=== PATIENT | female | born 1965 | race Caucasian/White ===

== ENCOUNTER 2016-05-14 07:31 | Observation (INO) | payer BC, OTHER ==
[~2016-05-14] VITALS: Ht 157.5 cm; Wt 47.2 kg
[2016-05-14] VITALS (7 sets, daily range): BP systolic 116–137; BP diastolic 63–91; PULSE 64–84; TEMP 36.4–36.8; O2SAT 95–98; Ht 157.5 cm; Wt 47.2 kg
[~2016-05-14 07:31] MED LIST: CEFAZOLIN 2000 MG/60 ML D5W IV SCH; LACTATED RINGER'S 1000ML 1,000 ML IV SCH; PATIENT'S ALLERGY INFO NEEDS ENTERED SCH; PATIENT'S HEIGHT AND/OR WEIGHT NEEDED SCH
[2016-05-14] MEDS ORDERED: BUPR-83 PO (07:51)
[2016-05-14] MEDS ORDERED: ALBU18002 INH (07:51)
[2016-05-14] MEDS ORDERED: FERR50TA3 PO (07:54)
[2016-05-14] MEDS ORDERED: CYAN1SUB12 INJ (07:54)
[2016-05-14] MEDS ORDERED: VITACAP26 PO (07:54)
[2016-05-14 08:16] LABS: BASO ABS # 0.07 K/uL (0-0.2); EOS % 1.1 %; HEMATOCRIT 47.5 % (37-47); IG% 0.1 %; LYMPH % 29.3 %; LYMPH ABS # 2.05 K/uL (1.2-3.4); MEAN CELL VOLUME 87.3 fL (80-100); MEAN CORPUSCULAR HEMOGLOBIN 31.3 pg (25-34); MEAN PLATELET VOLUME 10.3 fL (7.4-10.4); MONO % 9.1 %; NEUT % 59.4 %; PLATELET COUNT 280 K/uL (130-400); RED BLOOD COUNT 5.44 M/uL (4.2-5.4)
[2016-05-14 08:31] LABS: COMPLETE YES; MEAN CORPUSCULAR HGB CONC 35.8 g/dl (32-36)
[2016-05-14] MEDS ORDERED: GLYCOPYRROLATE INJ 0.2 MG/ML VIAL ONE (09:08)
[2016-05-14] MEDS ORDERED: PROPOFOL IV EMULSION 10 MG/ML 20 ML VIAL IV ONE (09:08)
[2016-05-14] MEDS ORDERED: DEXAMETHASONE SOD INJ 4 MG/ML VIAL ONE (09:08)
[2016-05-14] MEDS ORDERED: ROCURONIUM BROMIDE 10 MG/ML 5 ML VIAL ONE (09:08)
[2016-05-14] MEDS ORDERED: NEOSTIGMINE METHYLSULFATE 5 MG/5 ML SYR ONE (09:08)
[2016-05-14] MEDS ORDERED: ONDANSETRON INJ 2 MG/ML 2 ML VIAL ONE (09:08)
[2016-05-14] MEDS ORDERED: FENTANYL CITRATE INJ 50 MCG/1 ML 2 ML VIAL ONE ×3 (09:09→10:43)
[2016-05-14] MEDS ORDERED: MIDAZOLAM HCL 1 MG/ML 2ML VIAL ONE (09:09)
[2016-05-14] MEDS ORDERED: LACTATED RINGER'S 1000ML 1,000 ML IV PRN (09:20)
[2016-05-14] MEDS ORDERED: FENTANYL CITRATE INJ 50 MCG/1 ML 2 ML VIAL IV PRN (09:30)
[2016-05-14] MEDS ORDERED: DiphenhydrAMINE HCL 50 MG/ML VIAL IV PRN (09:30)
[2016-05-14] MEDS ORDERED: METOCLOPRAMIDE HCL INJ 5 MG/ML 2 ML VIAL IV PRN (09:30)
[2016-05-14] MEDS ORDERED: ONDANSETRON INJ 2 MG/ML 2 ML VIAL IV PRN ×2 (09:30→12:00)
[2016-05-14] MEDS ORDERED: MoRPHine SULFATE 10 MG/ML CARP/VIAL IV PRN (09:30)
--- NOTE | 2016-05-14 09:31 | History & Physical Bridge Note ---
H&P Re-Evaluation Bridge Note: I have examined the patient, reviewed the History & Physical and in the interval since the performance of the History & Physical I have noted the following changes of clinical significance: No changes noted
[2016-05-14] MEDS ORDERED: KETOROLAC TROMETHAMINE 30 MG/ML VIAL ONE (11:31)
[2016-05-14] MEDS ORDERED: BUPIVACAINE 0.5 % 5 MG/1 ML MPF 30ML VIAL INJ ONE (11:38)
[2016-05-14] MEDS ORDERED: LACTATED RINGER'S 1000ML 1,000 ML IV SCH (11:47)
[2016-05-14] MEDS ORDERED: MTR600X PO (11:52)
[2016-05-14] MEDS ORDERED: OXYC-57 PO (11:52)
--- NOTE | 2016-05-14 11:53 | Discharge Instructions ---
Discharge Instructions Admission Reason for Admission: Leiomyoma Of Uterus, Abnormal Uterine Bleeding Discharge Discharge Diagnosis / Problem: status post surgery Discharge Goals Goal(s): Routine recovery after surgery Activity Recommendations Activity Limitations: as noted below . Instructions / Follow-Up Instructions / Follow-Up POST OPERATIVE: BOWEL FUNCTION/MEDICATIONS: 1. Constipation pain and discomfort are the most common complaints 5-7 days after surgery. Points 2-6 address the things that can help. 2. Chewing gum can help stimulate the gut and help improve digestion and motility. 3. Milk of Magnesia 1-2 times per day until return of bowel function. 4. Colace is a stool softener that helps. Taking this 2-3 times per day until bowel function returns to normal is highly recommended. 5. Dulcolax is a laxative that may be used if several days have passed without a bowel movement. Alternatively Miralax may be used daily instead. 6. Drink plenty of fluids as this will also reduce constipation. 7. Narcotic pain medications will be prescribed by your physician. They are safe to use and we encourage you to use them. If you are not allergic, ibuprofen will also be prescribed. Many patients will be able to transition off of the narcotic medications to ibuprofen by postoperative day 3. ACTIVITY RECOMMENDATIONS: 1. Get plenty of rest and listen to your body. If you are tired, take a nap. 2. You may shower, but do not take a tub bath until you see your doctor at the 2 week post operative visit. 3. Absolutely NO intercourse and nothing in the vagina until you are examined by your doctor at the 8 week visit. At that visit it will be determined when such activities can be resumed. This can range from 6-12 weeks after your surgery depending on healing time. 4. The main physical activity in the first week should be walking. By the second week you can slowly increase activity. There are no limits on walking up and down stairs. 5. Do not lift more than 5-10 lbs for 4 weeks. Remember the "one-handed rule", i.e. if you can lift something with only one hand it's likely okay. 6. Minimize clinical athletic instructor like vacuuming and exercising for 4 weeks. "Overdoing it" can lead to incisions not healing, pain and vaginal bleeding , so again, listen to your body. 7. Driving can be resumed when you feel able. Do not drive within 24 hours of taking a narcotic medication. EXPECTATIONS: 1. Vaginal spotting, bleeding and discharge are common after surgery. There may even be an odor to the discharge which is often related to sutures used in the vagina. If you experience heavy vaginal bleeding, call the office number day or night [phone]. 2. Bladder discomfort is common after surgery from the catheter. This usually resolves in 1-2 weeks. 3. By the end of the 3rd or 4th week you should be feeling much better. It may take up to 6 weeks for your energy levels to return to normal. 4. Narcotic medications have side effects such as: dizziness, headache, nausea and/or vomiting. If you suspect your pain medication is causing problems, call our office and we may be able to prescribe an alternate medication. 5. The skin incisions are often covered with a liquid bandage. This will gradually peel off over time. CALL THE OFFICE IF YOU HAVE ANY OF THE FOLLOWIN. Temperature of 101 degrees or higher. 2. Severe abdominal or pelvic pain not relieved by pain medication. 3. Persistent nausea or vomiting. 4. Increased pain with urination or difficulty urinating. 5. Bright red bleeding that soaks more than 1 pad per hour. CONTACT PHONE NUMBERS: Main Office: [phone] Surgical Nurse: [phone] extension [phone] FOLLOW-UP: Post-Operative Appointments: * Individual instructions will have been given about the timing of your first examination, but this is usually at the end of the second week home. * You will need to call the office at soon after discharge to make the appointment for your post-op check-up if it has not already been scheduled. * Additional information regarding activity, sexual intercourse and when to return to work will be given at this appointment. WE WISH YOU A SPEEDY RECOVERY! Current Hospital Diet Patient's current hospital diet: Discharge Diet Recommended Diet: Regular Diet Procedures Procedures Performed: Total Laparoscopic Hysterectomy, Bilateral salpingectomies with use of Davinci, cystoscopy Pending Studies Studies pending at discharge: yes List of pending studies: pathology Medical Emergencies . Who to Call and When: Medical Emergencies: If at any time you feel your situation is an emergency, please call 911 immediately. . Non-Emergent Contact Non-Emergency issues call your: Primary Care Provider, Machinist General Call Non-Emergent contact if: you have a fever, your pain is worsening, your pain is concerning you, wound has increased drainage, wound has increased redness, wound has increased pain . . "Provider Documentation" section prepared by Saira Paredes. VTE Core Measure Inpt VTE Proph given/why not?: Treatment not indicated
--- NOTE | 2016-05-14 11:56 | [facility] Post Operative Brief Note ---
Immediate Operative Summary Operative Date May 14, 2016. Pre-Operative Diagnosis 1. Abnormal uterine bleeding, 2. uterine leiomyoma. 3. H/o anemia 4. abnl u/s findings Post-Operative Diagnosis Same as preop. Procedure(s) Performed Total Laparoscopic Hysterectomy, Bilateral salpingectomies with use of ERIKA Joya cystoscopy Surgeon Dr. Paredes Prep Room Supervisor Surgeon(s) None Estimated Blood Loss 10 mL Findings omental adhesions to anterior abdominal wall and toward left sidewall. did not involve bowel. dense adhesions of peritoneal tissues and bladder to anterior uterus particularly on left anterior uterus but came across midline. normal ovaries and tubes bilaterally. cyto findings with normal bladder filling, no sutures seen, normal bilateral ureteral jets. Fluids (cc crystalloids) 1500 Specimens A: Uterus, Cervix, Bilateral Tubes Drains none Anesthesia general Complication(s) None Disposition Recovery Room / PACU
[2016-05-14] MEDS ORDERED: SIMETHICONE 80 MG CHEW PO PRN (12:00)
[2016-05-14] MEDS ORDERED: ACETAMINOPHEN 325 MG TAB PO PRN (12:00)
[2016-05-14] MEDS ORDERED: IBUPROFEN 600 MG TAB PO PRN (12:00)
[2016-05-14] MEDS ORDERED: OXYCODONE/ACETAMINOPHEN 5-325 TAB PO PRN (12:00)
[2016-05-14] MEDS ORDERED: KETOROLAC TROMETHAMINE 30 MG/ML VIAL IV. PRN (12:00)
--- NOTE | 2016-05-14 12:57 | OPERATIVE REPORT ---
DATE OF OPERATION: 05/14/2016 PREOPERATIVE DIAGNOSES: 1. Abnormal uterine bleeding. 2. Abnormal ultrasound findings. 3. Uterine leiomyoma. 4. History of anemia. POSTOPERATIVE DIAGNOSES: Same. PROCEDURES: 1. Total laparoscopic hysterectomy. 2. Lysis of adhesions. 3. Bilateral salpingectomies. 4. Cystoscopy. 5. Robotic assistance. SURGEON: Dr. Saira Paredes. KIT PLANNER: RN. IV FLUIDS: 1500 mL. ESTIMATED BLOOD LOSS: 10 mL. INDICATIONS: A 50-year-old who has completed her childbearing with a history of abnormal uterine bleeding for the past 6 years with description of extremely heavy flow with passage of large clots limiting her lifestyle, particularly in the past 12 months. The patient was seen by other physicians, who attempted an endometrial ablation, but could not get into the cavity. She had an endometrial biopsy that showed benign findings and unfortunately due to anemia from her bleeding, has periodically obtained iron infusions. She wants definitive hysterectomy. She has a likely intracavitary or submucosal fibroid on ultrasound with cavity distortion. She is a smoker. She has some right-sided pain intermittently. I would consider a right unilateral salpingo-oophorectomy if there was evidence of issues on the right side at the time of surgery. She had considered all of her options and desired definitive hysterectomy. FINDINGS: Laparoscopic findings with normal liver edge. Uterus is mobile in the pelvis as was the bilateral ovaries and fallopian tubes. Fallopian tubes with evidence of prior tubal occlusion. Omental adhesions densely in the midline to the anterior abdominal wall and meeting in the left sidewall. Additional adhesions of the bladder and peritoneal tissues densely to the anterior uterus with more significant adhesions centrally and towards the left hand side. Ureters peristalsing and coursing normally well beneath the planned operative sites. Hysteroscopic findings at the end of the procedure included normal bladder filling with normal dome. No evidence of suture material and bilateral ureteral jets noted. DESCRIPTION OF PROCEDURE: The patient was taken to the operating room and identified. After adequate general anesthesia, the patient was placed in the dorsal lithotomy position and prepped and draped in the usual sterile fashion. The bladder was drained for clear yellow urine using a Guerrero catheter. Attention was turned to the vagina, where an anterior retractor as well as a weighted speculum were used to visualize the cervix. The cervix was grasped on its anterior lip with an Allis clamp. A interrupted suture of 0- vicryl was placed at the 3 o'clock position on the cervix. Cervix was sequentially dilated and sounded to 9.5 cm. The Departingare uterine manipulator was gently placed into the cervical os into the uterine cavity and a balloon was inflated. The cup was tied to the suture material and then was further stabilized. This was done to allow for uterine manipulation. The Allis clamp had been removed. The retractors had been removed. Attention was then turned to the patient's abdomen, where a supraumbilical skin incision was made with a scalpel. The Veress needle was placed intraperitoneally with an opening pressure of 4 mmHg. A CO2 pneumoperitoneum was created. Using a 12-mm optical trocar and a laparoscope, the peritoneal cavity was entered into the trocar. The patient was placed in steep Trendelenburg. The da Wendy trocar sites were created left and right of the midline by first creating skin incisions and then placing under direct visualization da Wendy trocars. The findings were as noted above. The da Wendy robot was brought to the patient's bedside. The appropriate instrument arms were connected to the appropriate trocars. The monopolar samuel and fenestrated bipolar cautery device were introduced into the abdomen after the camera was placed under direct visualization. The surgeon then went to the console. The surgeon next addressed the dense adhesions of the omentum to the anterior abdominal wall. These did not involve any bowel tissue. The bilateral ureters were noted coursing well below the planned operative site. The ovaries were completely mobile in the pelvis bilaterally and therefore, the decision was made not to remove either ovary, per the patient's request. The uterine-ovarian round ligament, fallopian tube complex on the right side was identified. It was coagulated and then transected in a sequential fashion. The broad ligament was opened up into. The bladder flap was begun anteriorly from the right side as well as further skeletonization of the uterine artery pedicle from the right side. The uterine arteries were then coagulated. Attention was then turned to the left side. The left uterine-ovarian round ligament, fallopian tube complex was coagulated and transected in a similar fashion. The leaves of the broad ligament were opened up into sharply and the uterine artery pedicle was skeletonized. It was evident that there were dense adhesions of the peritoneum and/or bladder to the anterior cervix, particularly on the left side. For this recent, attention was returned to the right uterine artery area and with sharp and blunt dissection, the overlying tissues and bands of scar tissue were taken down to reveal the VCare cup and clear of the bladder more completely from this right side. Because it was better cleared on this right side, the uterine arteries were further cauterized and then transected and the cardinal ligament attachments were further cauterized and transected. Clearly, the dense adhesions persisted on the left side. It appeared to be more of a dense band of the peritoneal tissue, but to be sure, the bladder was backfilled and with the backfilled bladder and the uterus elevated, it was evident that this tissue was not involving the actual bladder. For that reason, close to the uterus, the band of tissue was coagulated and transected. With blunt and further sharp dissection, the bladder flap was further developed on the left side towards the midline and the bladder was cleared away from the anterior VCare cup. The uterine arteries were then further skeletonized on the left. They were coagulated and transected. The cardinal ligament attachments were further coagulated and transected and this allowed for palpation of the VCare cup circumferentially and decision was made to proceed with colpotomy. With pressure on the VCare cup, the colpotomy was performed. The specimen was completely transected. It was brought out vaginally. The fallopian tubes bilaterally were cauterized and transected and then passed vaginally as well. A sponge was placed in the vagina to allow for maintenance of the pneumoperitoneum. A 2-0 V-Loc 90 suture was passed vaginally into the abdomen. The #1 instrument arm was changed to the large needle [employer] haz[employer] tanker driver and the cuff was closed in the routine fashion using 2-0 V-Loc 90 suture material. Back stitches were placed. The sponge was removed and there was no escape of air from the abdomen into the vagina. The pelvis was irrigated and after the suture material was cut, the needle was brought out of the abdomen. The pelvis was irrigated and there were no active bleeding sites. At this point, the procedure was terminated. All the operative sites were hemostatic. The robot was undocked and left by the bedside and kept sterile and the surgeon then went to perform cystoscopy. The cystoscopy was performed with the findings as noted above. At this point, the procedure was terminated. The bladder was drained of all excess urine and a Guerrero catheter was not replaced. The robot was moved away from the bedside. Attention was turned to the patient's abdomen, where the CO2 gas was allowed to escape from her abdomen and the trocars were removed. The fascia was reapproximated at the supraumbilical skin incision using 0 Vicryl in an interrupted suture. The skin incisions were all closed with 4-0 Vicryl. The incisions were then injected with Marcaine and dressed with Dermabond. The patient was returned to the supine position. She was awoken from anesthesia and transferred to recovery room in stable condition. All sponge, lap, and needle counts were correct x2. I attest to the content of the Intraoperative Record and any orders documented therein. Any exceptions are noted below. JAGRUTI
--- NOTE | 2016-05-14 13:04 | Anesthesiology Progress Note ---
Anesthesia Post Op Note Date & Time May 14, 2016 at 13:03 Vital Signs Pain Intensity: 0 Vital Signs Past 12 Hours Date Time Temp Pulse Resp B/P Pulse Ox O2 Delivery O2 Flow Rate FiO2 05/14/16 12:55 66 19 148/88 100 Nasal Cannula 2 05/14/16 12:45 36.4 73 18 141/74 100 Nasal Cannula 2 05/14/16 12:35 66 12 165/65 100 Nasal Cannula 2 05/14/16 12:25 61 11 120/59 100 Mask 10 05/14/16 12:15 62 10 108/65 100 Mask 10 05/14/16 12:05 66 10 101/61 100 Mask 10 05/14/16 11:57 36.0 79 19 105/71 99 Mask 10 05/14/16 07:55 36.5 84 18 131/63 97 Room Air Notes Mental Status: alert / awake / arousable, participated in evaluation Pt Amnestic to Procedure: Yes Nausea / Vomiting: adequately controlled Pain: adequately controlled Airway Patency, RR, SpO2: stable & adequate BP & HR: stable & adequate Hydration State: stable & adequate Anesthetic Complications: no major complications apparent Pt doing well.
[2016-05-14] MEDS ORDERED: IV FLUIDS COMPLETED PRN (13:45)
[2016-05-14] MEDS: OXYCODONE/ACETAMINOPHEN 5-325 TAB PO PRN ×2 (15:05→19:12)
--- NOTE | 2016-05-16 10:50 | Progress Note ---
Progress Note of note I had signed her op note but on dictating her d/c summary noticed that I said a hysteroscopic evaluation was done of her bladder. I meant cystoscopic.
--- NOTE | 2016-05-16 11:46 | DISCHARGE SUMMARY ---
ADMISSION DIAGNOSES: 1. Abnormal uterine bleeding. 2. Abnormal ultrasound findings. 3. Uterine leiomyoma. 4. History of anemia. DISCHARGE DIAGNOSES: Same. PROCEDURES: 1. Total laparoscopic hysterectomy. 2. Lysis of adhesions. 3. Bilateral salpingectomies. 4. Cystoscopy. 5. Robotic assistance. BRIEF HISTORY AND HOSPITAL COURSE: A 50-year-old who has completed her childbearing with a history of abnormal uterine bleeding for the past 6 years, worsening with large clots and extremely heavy flow in the past 12 months. The patient had an attempted endometrial ablation by another provider, but they could not complete this. She had an endometrial biopsy that showed benign findings and unfortunately due to her anemia, has had IV ironic transfusions. She wants definitive hysterectomy. She also has an intracapsular submucosal fibroid on ultrasound. She is a smoker. She has an intermittent right-sided pain and desired evaluation of the right side for possible unilateral salpingo-oophorectomy. She went to the operating room as mentioned with the above stated procedures. The ovary was completely mobile on the right side and therefore other than salpingectomies, it was left in place. The estimated blood loss was 10 mL. Her postop course and recovery was uncomplicated. She was tolerating a regular diet, voiding spontaneously without difficulty, ambulating without difficulty and was stable for discharge to home on her postop day #0. She was given appropriate pain medication prescriptions as well as discharge instructions. She is to follow up in the office in 2 weeks.
== END 2016-05-14 20:05 | disposition home or self-care (01) ==
LOC: ENRESERVTM → ENRESERVDT → C.ACU 07:31 → C.MS4N 08:10
PROVIDERS: ADMIT Obstetrics & Gynecology; ATTEND Obstetrics & Gynecology
DX: N93.9 Abnormal uterine and vaginal bleeding, unspecified (principal); D25.0 Submucous leiomyoma of uterus; K66.0 Peritoneal adhesions (postprocedural) (postinfection); F41.8 Other specified anxiety disorders; F42.9 Obsessive-compulsive disorder, unspecified; F17.200 Nicotine dependence, unspecified, uncomplicated; Z90.49 Acquired absence of other specified parts of digestive tract; Z82.49 Family history of ischemic heart disease and other diseases of the circulatory system; Z80.0 Family history of malignant neoplasm of digestive organs; Z82.3 Family history of stroke; Z83.71 Family history of colonic polyps
CPT/HCPCS: 58571; S2900

== ENCOUNTER → 2016-06-02 | Outpatient (CLI) | payer BC, OTHER ==
[~2016-06-02] MED LIST changes: +ALBU18002 INH; +BUPR-83 PO; -CEFAZOLIN 2000 MG/60 ML D5W IV SCH; +CYAN1SUB12 INJ; +FERR50TA3 PO; -LACTATED RINGER'S 1000ML 1,000 ML IV SCH; +MTR600X PO; +OXYC-57 PO; -PATIENT'S ALLERGY INFO NEEDS ENTERED SCH; -PATIENT'S HEIGHT AND/OR WEIGHT NEEDED SCH; +VITACAP26 PO
[2016-06-02 12:19] LABS: BASO % 1.6 %; BASO ABS # 0.16 K/uL (0-0.2); COMPLETE YES; EOS % 3.8 %; HEMATOCRIT 43.7 % (37-47); IG% 0.3 %; LYMPH % 25.6 %; LYMPH ABS # 2.54 K/uL (1.2-3.4); MEAN CELL VOLUME 89.4 fL (80-100); MEAN CORPUSCULAR HEMOGLOBIN 31.9 pg (25-34); MEAN CORPUSCULAR HGB CONC 35.7 g/dl (32-36); MEAN PLATELET VOLUME 10.6 fL (7.4-10.4); NEUT % 58.7 %; PLATELET COUNT 329 K/uL (130-400); RED BLOOD COUNT 4.89 M/uL (4.2-5.4); WHITE BLOOD COUNT 9.94 K/uL (4.8-10.8)
[2016-06-02 12:31] LABS: ALT/SGPT 25 U/L (12-78); BLOOD UREA NITROGEN 16 mg/dl (7-18); BUN/CREATININE RATIO 16.6 (10-20); CALCIUM 8.6 mg/dl (8.5-10.1); CARBON DIOXIDE 26 mmol/L (21-32); CHLORIDE 104 mmol/L (98-107); CREATININE 0.94 mg/dl (0.60-1.20); GLUCOSE 124 mg/dl (70-99); POTASSIUM 3.9 mmol/L (3.5-5.1); SODIUM 140 mmol/L (136-145)
[2016-06-02 12:34] LABS: ALB/GLOB RATIO 1.3 (0.9-2); ALKALINE PHOSPHATASE 94 U/L (45-117); AST/SGOT 19 U/L (15-37)
== END | disposition home or self-care (01) ==
LOC: C.LAB1850 10:40
PROVIDERS: ATTEND Obstetrics & Gynecology
DX: R10.2 Pelvic and perineal pain (principal)

== ENCOUNTER 2017-03-29 20:23 | Inpatient (IN) | payer BC, OTHER ==
[~2017-03-29] VITALS: Ht 160 cm; Wt 50.6 kg
[~2017-03-29 20:23] MED LIST changes: -SERT25TA PO; -ZLF50 PO
[2017-03-29] MEDS ORDERED: SERT25TA PO ×2 (20:36)
[2017-03-29] MEDS ORDERED: LORAZEPAM 0.5 MG TAB PO STA (20:44)
--- NOTE | 2017-03-29 20:50 | EMERGENCY ROOM VISIT NOTE ---
History Report prepared by Henrik: Randolph Easley Under the Supervision of: Dr. Marcus Rowley M.D. First contact with patient: 20:31 Chief Complaint: MENTAL HEALTH EVALUATION Stated Complaint: MENTAL HEALTH EVAL History of Present Illness The patient is a 51 year old white female with a past medical history of suicidal ideations, anemia, c-sections, cholecystectomy, and hysterectomy who presents to the ED with a cc of suicidal ideations beginning a couple years ago , though her PCP told her to come to the ED for evaluation today. Negative recent stressors, hallucinations, homicidal ideation, nausea, vomiting, abdominal pain, difficulty with urination, difficulty with bowel movements, alcohol use, drug use, and any attempt at suicide. She states that she was recently put on Zoloft, and she states that she currently is a smoker. Source of History: patient Onset: years ago Position: other (global) Quality: other (suicidal ideation) Timing: constant Associated Symptoms: No nausea, No vomiting, No abdominal pain, No urinary symptoms Review of Systems See HPI for pertinent positives and negatives. A total of ten systems were reviewed and were otherwise negative. Past Medical & Surgical Medical Problems: (1) Abnormal pelvic ultrasound (2) Abnormal uterine bleeding (AUB) (3) History of anemia (4) Leiomyoma of uterus Social History Smoking Status: Current Every Day Smoker Marital Status: single Occupation Status: employed Current/Historical Medications Scheduled Cyanocobalamin (Vitamin B-12), Unknown Dose INJ MONTHLY Sertraline (Zoloft), 25 MG PO DAILY Scheduled PRN Albuterol Sulfate (Proair Respiclick), 2 PUFFS INH DAILY PRN for Anxiety/ Agitation Allergies Coded Allergies: No Known Allergies (Unverified , 03/29/17) PER PRE-ANESTHESIA HEALTH QUESTIONNAIRE Physical Exam Vital Signs Date Time Temp Pulse Resp B/P (MAP) Pulse Ox O2 Delivery O2 Flow Rate FiO2 03/30/17 00:31 76 16 132/69 96 Room Air 03/29/17 20:28 36.7 79 16 167/92 96 Room Air Physical Exam GENERAL: Awake, alert, tearful-appearing, NAD HENT: Normocephalic, atraumatic. EYES: Normal conjunctiva. Sclera non-icteric. NECK: Supple. No nuchal rigidity. FROM. RESPIRATORY: CTAB, no rhonchi, wheezing, crackles CARDIAC: RRR, no MRG ABDOMEN: Soft, NTND, BS+ MSK: No chest wall TTP, no LE edema NEURO: GCS 15, CN 2-12 intact, moves all 4s on command SKIN: No rash or jaundice noted. PSYCH: Suicidal ideation with no plan. No HI, no AVH Medical Decision & Procedures Laboratory Results 03/29/17 21:13 Red Blood Count 4.94, Mean Corpuscular Volume 90.3, Mean Corpuscular Hemoglobin 32.0, Mean Corpuscular Hemoglobin Concent 35.4, Mean Platelet Volume 10.5, Neutrophils (%) (Auto) 67.3, Lymphocytes (%) (Auto) 24.5, Monocytes (%) (Auto) 6.4, Eosinophils (%) (Auto) 1.1, Basophils (%) (Auto) 0.4, Neutrophils # (Auto) 8.19, Lymphocytes # (Auto) 2.99, Monocytes # (Auto) 0.78, Eosinophils # (Auto) 0.13, Basophils # (Auto) 0.05 03/29/17 21:12 Test 03/29/17 21:00 03/29/17 21:12 03/29/17 21:13 Urine Color YELLOW Urine Appearance CLEAR (CLEAR) Urine pH 6.5 (4.5-7.5) Urine Specific [place] 1.019 (1.000-1.030) Urine Protein NEG (NEG) Urine Glucose (UA) NEG (NEG) Urine Ketones NEG (NEG) Urine Occult Blood NEG (NEG) Urine Nitrite NEG (NEG) Urine Bilirubin NEG (NEG) Urine Urobilinogen NEG (NEG) Urine Leukocyte Esterase TRACE (NEG) Urine WBC (Auto) 1-5 /hpf (0-5) Urine RBC (Auto) 0-4 /hpf (0-4) Urine Hyaline Casts (Auto) 1-5 /lpf (0-5) Urine Epithelial Cells (Auto) 20-30 /lpf (0-5) Urine Bacteria (Auto) NEG (NEG) Urine Opiates Screen NEG (NEG) Urine Methadone, Qualitative NEG (NEG) Urine Barbiturates NEG (NEG) Urine Phencyclidine (PCP) Level NEG (NEG) Ur Amphetamine/Methamphetamine NEG (NEG) MDMA (Ecstasy) Screen NEG (NEG) Urine Benzodiazepines Screen NEG (NEG) Urine Cocaine Metabolite NEG (NEG) Urine Marijuana (THC) NEG (NEG) Anion Gap 7.0 mmol/L (3-11) Est Creatinine Clear Calc Drug Dose 57.2 ml/min Estimated GFR () 81.5 Estimated GFR (Non- 70.3 BUN/Creatinine Ratio 17.3 (10-20) Calcium Level 9.2 mg/dl (8.5-10.1) Total Bilirubin 0.3 mg/dl (0.2-1) Direct Bilirubin < 0.1 mg/dl (0-0.2) Aspartate Amino Transf (AST/SGOT) 17 U/L (15-37) Alanine Aminotransferase (ALT/SGPT) 20 U/L (12-78) Alkaline Phosphatase 91 U/L (45-117) Total Protein 7.5 gm/dl (6.4-8.2) Albumin 4.1 gm/dl (3.4-5.0) Thyroid Stimulating Hormone (TSH) 1.880 uIu/ml (0.300-4.500) Salicylates Level 3.7 mg/dl (2.8-20) Acetaminophen Level < 2 ug/ml (10-30) White Blood Count 12.18 K/uL (4.8-10.8) Red Blood Count 4.94 M/uL (4.2-5.4) Hemoglobin 15.8 g/dL (12.0-16.0) Hematocrit 44.6 % (37-47) Mean Corpuscular Volume 90.3 fL (80-100) Mean Corpuscular Hemoglobin 32.0 pg (25-34) Mean Corpuscular Hemoglobin Concent 35.4 g/dl (32-36) Platelet Count 272 K/uL (130-400) Mean Platelet Volume 10.5 fL (7.4-10.4) Neutrophils (%) (Auto) 67.3 % Lymphocytes (%) (Auto) 24.5 % Monocytes (%) (Auto) 6.4 % Eosinophils (%) (Auto) 1.1 % Basophils (%) (Auto) 0.4 % Neutrophils # (Auto) 8.19 K/uL (1.4-6.5) Lymphocytes # (Auto) 2.99 K/uL (1.2-3.4) Monocytes # (Auto) 0.78 K/uL (0.11-0.59) Eosinophils # (Auto) 0.13 K/uL (0-0.5) Basophils # (Auto) 0.05 K/uL (0-0.2) RDW Standard Deviation 41.3 fL (36.4-46.3) RDW Coefficient of Variation 12.5 % (11.5-14.5) Immature Granulocyte % (Auto) 0.3 % Immature Granulocyte # (Auto) 0.04 K/uL (0.00-0.02) Ethyl Alcohol mg/dL < 3.0 mg/dl (0-3) Medications Administered Medications (Trade) Dose Ordered Sig/[place] Start Time Stop Time Status Last Admin Dose Admin Lorazepam (Ativan Tab) 0.5 mg NOW STAT PO 03/29/17 20:44 03/29/17 20:46 DC 03/29/17 20:44 0.5 MG ED Course 2030: The patient was evaluated in room A6. A complete history and physical exam was performed. Medical Decision The patient is a 51 year old white female with a past medical history of suicidal ideations, c-sections, cholecystectomy, and hysterectomy who presents to the ED with a cc of suicidal ideations beginning a couple years ago, though her PCP told her to come to the ED for evaluation today. Triage Nursing notes reviewed. The patient's presentation and history were concerning for etiologies such as mood disorder, infection, hypoglycemia, electrolyte abnormalities, cardiac sources, intracerebral event, toxicologic, neurologic, as well as others were entertained. Patient was seen and evaluated the bedside. Patient is tearful. Patient did state that she has some suicidal ideation but this is chronic and ongoing for years. Patient does not have a plan. Patient also denies any prior history of suicide attempts. Patient denies any alcohol, drug use, or taking medications that she has either nonprescribed or in excess. Patient had a through to warrant that was signed from a physician medical receptionist medical assistant and was concerned as the patient had stated to them that they had a plan to rectally her car. Of note patient did drive here. Patient denies any auditory or visual hallucinations. Patient did have blood work, urinalysis completed. Patient was seen and evaluated by the mental health specialist. Patient was cleared from medical standpoint. Patient was evaluated by the mental health specialist who recommended inpatient treatment. Patient was a voluntary admission. Patient was pending acceptance. Patient was a voluntary admit to [facility]. Impression Primary Impression: Suicidal ideation Additional Impressions: Depression Encounter for smoking cessation counseling Scribe Attestation The scribe's documentation has been prepared under my direction and personally reviewed by me in its entirety. I confirm that the note above accurately reflects all work, treatment, procedures, and medical decision making performed by me. Departure Information Referrals Letha Blum DO (PCP) Patient Instructions My [facility] Problem Qualifiers Additional Impressions: Depression Depression Type: unspecified Qualified Codes: F32.9 - Major depressive disorder, single episode, unspecified
[2017-03-29 21:25] LABS: BASO % 0.4 %; BASO ABS # 0.05 K/uL (0-0.2); COMPLETE YES; EOS % 1.1 %; HEMATOCRIT 44.6 % (37-47); IG% 0.3 %; LYMPH % 24.5 %; LYMPH ABS # 2.99 K/uL (1.2-3.4); MEAN CELL VOLUME 90.3 fL (80-100); MEAN CORPUSCULAR HGB CONC 35.4 g/dl (32-36); MEAN PLATELET VOLUME 10.5 fL (7.4-10.4); MONO % 6.4 %; NEUT % 67.3 %; PLATELET COUNT 272 K/uL (130-400); RED BLOOD COUNT 4.94 M/uL (4.2-5.4); WHITE BLOOD COUNT 12.18 K/uL (4.8-10.8)
[2017-03-29 21:34] LABS: URINE APPEARANCE CLEAR (CLEAR); URINE BILIRUBIN NEG (NEG); URINE COLOR YELLOW; URINE EPITHELIAL CELL AUTO 20-30 /lpf (0-5); URINE NITRITE NEG (NEG); URINE PH 6.5 (4.5-7.5); URINE SPECIFIC GRAVITY 1.019 (1.000-1.030); UROBILINOGEN NEG (NEG)
[2017-03-29 21:35] LABS: MANUAL MICROSCOPIC REQUIRED? NO; REVIEW REQ? NO
--- NOTE | 2017-03-29 21:38 | DIAGNOSTIC IMAGING REPORT ---
CHEST ONE VIEW PORTABLE CLINICAL HISTORY: Mood disorder. COMPARISON STUDY: No previous studies for comparison. FINDINGS: No consolidation is identified and there is no evidence of pulmonary edema. No pneumothorax or pleural effusion is present. A 1.5 cm nodular density projects over the left mid to lower lung. The patient is mildly rotated. There may be mild lung hyperexpansion. IMPRESSION: 1. No acute cardiopulmonary findings. 2. 1.5 cm nodular density which projects over the left lower lung. This likely reflects a nipple shadow however follow-up nonemergent PA and shallow oblique radiographs of the chest with nipple markers are recommended. Electronically signed by: Bassem Johnson M.D. 03/29/2017 9:36 PM Dictated Date/Time: 03/29/2017 9:34 PM
[2017-03-29 21:54] LABS: ALT/SGPT 20 U/L (12-78); BLOOD UREA NITROGEN 16 mg/dl (7-18); BUN/CREATININE RATIO 17.3 (10-20); CALCIUM 9.2 mg/dl (8.5-10.1); CARBON DIOXIDE 27 mmol/L (21-32); CHLORIDE 108 mmol/L (98-107); CREATININE 0.95 mg/dl (0.60-1.20); GLUCOSE 119 mg/dl (70-99); POTASSIUM 3.7 mmol/L (3.5-5.1); SODIUM 142 mmol/L (136-145)
[2017-03-29 21:55] LABS: ACETAMINOPHEN < 2 ug/ml (10-30); ALKALINE PHOSPHATASE 91 U/L (45-117); AST/SGOT 17 U/L (15-37)
[2017-03-29 22:05] LABS: BENZODIAZEPINE, URINE NEG (NEG); COCAINE,URINE NEG (NEG); PHENCYCLIDINE, URINE NEG (NEG)
[2017-03-30] MEDS ORDERED: NURSING VERBAL MED ORDER ONE (00:15)
[2017-03-30 00:33] VITALS: BP 132/69; PULSE 76; TEMP 36.7; Ht 160 cm; Wt 50.6 kg
[2017-03-30 01:00] VITALS: O2SAT 96
[2017-03-30] MEDS ORDERED: MAGNESIUM HYDROXIDE SUSP 30 ML UDC PO PRN (01:45)
[2017-03-30] MEDS ORDERED: ALUMINUM/MAGNESIUM SUSP 30 ML UDC PO PRN (01:45)
[2017-03-30] MEDS ORDERED: hydrOXYzine HCL 25 MG TAB PO PRN ×2 (01:45)
[2017-03-30] MEDS ORDERED: SODIUM CHLORIDE 0.65% NA SOLN 45 ML (OCEAN) PRN (01:45)
[2017-03-30] MEDS ORDERED: BISMUTH SUBSALICYLATE PER ML OMNICELL CHARGE PO PRN (01:45)
[2017-03-30] MEDS ORDERED: ACETAMINOPHEN 325 MG TAB PO PRN (01:45)
[2017-03-30 06:41] VITALS: BP_SYST 104; BP_SYST 124; BP_DIAS 70; BP_DIAS 79; PULSE 70; PULSE 80; TEMP 36.8
[2017-03-30] MEDS: NICOTINE 14 MG/24 HR TDSY TD SCH (09:00)
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
[2017-03-30] MEDS ORDERED: ALBUTEROL HFA INHALER 18 GM INH PRN (13:00)
[2017-03-30] MEDS ORDERED: SERTRALINE HCL 50 MG TAB PO ONE (13:15)
[2017-03-31 06:56] VITALS: BP_SYST 132; BP_SYST 139; BP_DIAS 74; BP_DIAS 83; PULSE 57; PULSE 79; TEMP 36.6
[2017-03-31] MEDS: NICOTINE 14 MG/24 HR TDSY TD SCH (09:00)
[2017-03-31] MEDS ORDERED: SERTRALINE HCL 50 MG TAB PO SCH (09:00)
[2017-03-31] MEDS ORDERED: ZLF50 PO ×2 (15:36)
[2017-03-31] MEDS ORDERED: ALBU18002 INH ×2 (15:36)
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
== END 2017-03-31 16:20 | disposition home or self-care (01) | DRG 881 ==
LOC: C.EDB 20:25 → C.MHU 03-30 00:07
PROVIDERS: ADMIT Student in an Organized Health Care Education/Training Program; ATTEND Psychiatry & Neurology Psychiatry
DX: F32.9 Major depressive disorder, single episode, unspecified (principal); R45.851 Suicidal ideations; J45.909 Unspecified asthma, uncomplicated; F17.200 Nicotine dependence, unspecified, uncomplicated; Z90.710 Acquired absence of both cervix and uterus; Z90.49 Acquired absence of other specified parts of digestive tract

== ENCOUNTER → 2017-03-29 | Outpatient (CLI) | payer BC, OTHER ==
[~2017-03-29] MED LIST changes: -OXYC-57 PO; +SERT25TA PO; +ZLF50 PO
[2017-03-29 17:42] LABS: BLOOD UREA NITROGEN 13 mg/dl (7-18); BUN/CREATININE RATIO 16.5 (10-20); CALCIUM 9.5 mg/dl (8.5-10.1); CARBON DIOXIDE 29 mmol/L (21-32); CHLORIDE 105 mmol/L (98-107); CHOLESTEROL 242 mg/dl (0-200); CREATININE 0.79 mg/dl (0.60-1.20); GLUCOSE 96 mg/dl (70-99); POTASSIUM 4.5 mmol/L (3.5-5.1); SODIUM 140 mmol/L (136-145)
[2017-03-29 17:45] LABS: CHOLESTEROL/HDL RATIO 3.7; HDL CHOLESTEROL 65 mg/dl; LDL CHOLESTEROL CALCULATED 139 mg/dl; TRIGLYCERIDES 188 mg/dl (0-150); VERY LOW DENSITY LIPOPROT CALC 38 mg/dl
[2017-04-02 12:31] LABS: GLIADIN DEAMIDATED IgA AB 8 UNITS (<20); GLIADIN DEAMIDATED IgG AB 5 UNITS (<20); RETICULIN IgA AB Negative (Negative)
== END | disposition home or self-care (01) ==
LOC: C.LABPBG 15:35
PROVIDERS: ATTEND Physician Assistant
DX: Z00.00 Encounter for general adult medical examination without abnormal findings (principal); K52.9 Noninfective gastroenteritis and colitis, unspecified